=== PATIENT | female | born 1935 | race Caucasian/White ===

== ENCOUNTER 2017-09-23 16:11 | Inpatient (IN) | payer MEDICARE ==
[~2017-09-23] VITALS: Ht 157.5 cm; Wt 59.0 kg
--- NOTE | ~2017-09-23 | DS ---
PATIENT:ISRAEL ARMSTRONG :31 MEDICAL RECORD: [id number] DISCHARGE SUMMARY ADMISSION DATE: 09/23/17 DISCHARGE DATE: 10/08/17 This is a discharge dated 10/08/2017 from inpatient rehabilitation. PRIMARY DIAGNOSIS: Decreased functional ability and ability to provide activities of daily living secondary to CVA. SECONDARY DIAGNOSES: 1. Hyperlipidemia. 2. Hypertension. 3. Coronary artery disease. 4. Diabetes. 5. Arthritis. 6. Mild dementia. HOSPITAL COURSE: Full H&P is located elsewhere on the chart on this 81-year-old female who was admitted to inpatient rehab for physical therapy and occupational therapy to improve gait, transfer skills, bed mobility, and activities of daily living to a modified independent level. She was evaluated by PT and OT and their plans of care were followed. She required group home care for observation and assessment, medication administration. Electrolytes were managed by protocol. Fingerstick blood sugars were monitored throughout her hospital stay with appropriate adjustment in medications as needed. She was cooperative with therapies, progressing towards goals. Case management was involved for discharge planning. She was considered stable for discharge on 10/08/2017. DISCHARGE MEDICATIONS: As per discharge medication reconciliation. DISCHARGE DISPOSITION: The patient is discharged to [facility]. She will continue her current diet and level of activity. She will follow with primary care at the rehab facility and will require a followup with her PCP upon discharge from that facility. She will continue PT and OT. At least 30 minutes was spent in this discharge activity. TRANSINT:[id number] Voice Confirmation ID: [id number] DOCUMENT ID: [id number] Dictated By: ALEC BURNS I have interviewed/examined the above patient and agree with these documented findings. JEOVANNY HERRERA MD at 1757 at 1755 CC: [id number] DICTATION DATE: 11/14/17 1711 JEWELRY CUTTER: 11/15/17 1124 DIS IN 10/08/17 [facility] [address] [place] [address]
--- NOTE | ~2017-09-23 | RHP ---
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 HISTORY OF PRESENT ILLNESS: The patient is an 81-year-old female patient admitted to inpatient rehab from [facility] in [place] with the left middle cerebral artery infarct. She was admitted to hospital on 09/20/2017 secondary to acute change in mental status and recent memory. Following day, she became unresponsive with a sudden drop in her blood sugar and hypotension. She had no verbal response and unequal vessel manager and unequal sluggish pupils. She was given a 500 cc bolus and an amp of D50. She was transferred to the ICU. MRI of the brain showed CVA with occlusion of the middle cerebral artery. She has a history of coronary artery disease, status post coronary artery bypass grafting, cerebrovascular disease with bilateral carotid endarterectomies. She had diabetes, hypertension, and mild dementia. She was living with her daughter. She was independent with ADLs and mobility and her daughter's manage her finances. Currently, she is pleasantly confused, oriented to time. She is min to mod assist for ADLs and mobility. She wants to regain her strength and return back home at her prior level of functioning. COMORBIDITIES: Includes CVA secondary to occlusion of her left middle cerebral artery infarct, acute mental status changes, acute encephalopathy, coronary artery disease status post coronary bypass grafting, accelerated hypertension, diabetes mellitus, hypoglycemia, hypotension, hypercholesterolemia, arthritis, long-term use of insulin, confusion and disorientation at times and mild dementia. PAST MEDICAL HISTORY: Significant for hypertension, diabetes, arthritis, and coronary artery disease. PAST SURGICAL HISTORY: Includes coronary artery bypass grafting and status post bilateral carotid endarterectomy. ALLERGIES: No known drug allergies. CURRENT MEDICATIONS: Include NovoLog 5 units t.i.d. with meals. She is on Monopril 20 mg daily, Aricept 5 mg daily, Plavix 75 mg daily, Levemir 5 mg at bedtime, metoprolol 25 mg b.i.d., atorvastatin 10 mg daily, and polyethylene glycol 17 grams in 8 ounces of water daily. HABITS: No alcohol or tobacco use. FAMILY HISTORY: Noncontributory. SOCIAL HISTORY: The patient hopes to return back home with her daughters and get back to her prior level of function. REVIEW OF SYSTEMS: HISTORY AND PHYSICAL [id number] ISRAEL ARMSTRONG GENERAL: Does complain of weakness. EYES: Denies cold, cough, or congestion. CARDIOVASCULAR: Denies chest pain. PHYSICAL EXAMINATION: VITAL SIGNS: Stable, afebrile. GENERAL: Elderly female. HEENT: Normocephalic and atraumatic. Mucosa moist. NECK: Supple. No lymphadenopathy. LUNGS: Clear at this time. HEART: Regular rate and rhythm. ABDOMEN: Benign. EXTREMITIES: Does have noted unilateral weakness and mild confusion. ASSESSMENT: This is an 81-year-old female patient admitted to rehab with a working diagnosis of cerebrovascular accident. The patient has potential to make improvement. We instituted the following multidisciplinary therapies including to, but limited to physical, occupational, respiratory, speech, nutritional services, prosthetics, and orthotics. Given her complex medical condition and risk for further medical complications, rehabilitation services cannot be provided at a low level of care such as care home facility. PLAN: 1. Admit to [facility] rehab for intensive inpatient therapy to include the following disciplines: A. Physical therapy to improve gait, all transfer skills and bed mobility to a modified independent level. B. Occupational therapy to improve activities of daily living to a modified independent level. C. Case management to assist with discharge planning and placement options. D. Nutrition to assist with nutritional needs. E. Rehabilitation nursing to assist in monitoring of underlying medications and to assist with any type of bowel or bladder management. 2. The patient's current medication and medical care will be continued. 3. The patient will be placed on standard fall precautions. 4. The patient's estimated length of stay is approximately 7-10 days. 5. We will discuss this patient during care team staff meeting this week. TRANSINT:[id number] Voice Confirmation ID: [id number] DOCUMENT ID: [id number] 09/29/2017 Edited for chani PAYNE. KERRY notes whether there has been none or any medical/functional change since admission: - No change since preadmission screen. KERRY attests patient continues to be appropriate for IRF: - Continues to be appropriate. HISTORY AND PHYSICAL [id number] ISRAEL ARMSTRONG SCOTT MD at 2041 CC: [id number] DICTATION DATE: 09/23/172019 SHOT CORE DRILL OPERATOR: 09/23/172112 DIS IN 10/08/17 [facility] [address] [place] [address]
[2017-09-23] MEDS ORDERED: LIPITOR10 MG PO (18:08)
[2017-09-23] MEDS ORDERED: LOPRESSOR25 MG PO (18:09)
[2017-09-23] MEDS ORDERED: LEVEMIR100 U/M1 SC (18:11)
[2017-09-23] MEDS ORDERED: PLAVIX75 MG PO (18:11)
[2017-09-23] MEDS ORDERED: MONOPRIL10 MG PO (18:12)
[2017-09-23] MEDS ORDERED: ARICEPT5 MG PO (18:12)
[2017-09-23] MEDS ORDERED: NOVOLOG100 U/M1 SC (18:15)
[2017-09-23 19:00] VITALS: BP 154/67
[2017-09-23 23:08] VITALS: BP 154/67; BMI 23.8
[2017-09-24 06:33] LABS: BASOPHILS 0.1 % (0-2); EOSINOPHILS 2.8 % (0-7); HEMATOCRIT 42.1 % (36.0-48.0); HEMOGLOBIN 13.2 g/dL (12-16); IMMATURE GRANULOCYTES 0.3 % (0-5); LYMPHOCYTES 18.5 % (15-50); MCH 30.1 pg (26.0-34.0); MCHC 31.4 g/dL (31.0-37.0); MCV 95.9 fL (80.0-100.0); MEAN PLATELET VOLUME 10.7 fL (7.4-10.4); MONOCYTES 10.7 % (2-11); NEUTROPHILS 67.6 % (40-80); PLATELET COUNT 190 10x3/uL (130-400); RBC 4.39 10x6/uL (4.00-5.40); RDW 13.8 % (11.5-14.5); WBC 7.1 10x3/uL (4.8-10.8)
[2017-09-24 06:47] LABS: ANION GAP 12.6 mmol/L (8-16); CARBON DIOXIDE 28.9 mmol/L (21.0-32.0); CREATININE - SERUM 1.2 mg/dL (0.6-1.3); POTASSIUM - SERUM 4.5 mmol/L (3.5-5.1)
[2017-09-24 08:00] VITALS: BP 204/75
[2017-09-24 13:03] VITALS: Ht 157.5 cm; Wt 59.0 kg
[2017-09-24 19:00] VITALS: BP 148/53
[2017-09-25 10:26] VITALS: BP 210/79
[2017-09-25 23:28] VITALS: BP 185/74
[2017-09-26 10:19] VITALS: BP 155/65
[2017-09-26 21:40] VITALS: BP 220/82
[2017-09-27 06:17] LABS: BASOPHILS 0.1 % (0-2); EOSINOPHILS 4.6 % (0-7); HEMATOCRIT 40.8 % (36.0-48.0); IMMATURE GRANULOCYTES 0.1 % (0-5); LYMPHOCYTES 14.4 % (15-50); MCH 30.5 pg (26.0-34.0); MCHC 31.9 g/dL (31.0-37.0); MCV 95.8 fL (80.0-100.0); MONOCYTES 9.4 % (2-11); NEUTROPHILS 71.4 % (40-80); PLATELET COUNT 183 10x3/uL (130-400); RBC 4.26 10x6/uL (4.00-5.40); RDW 13.5 % (11.5-14.5); WBC 8.5 10x3/uL (4.8-10.8)
[2017-09-27 06:43] LABS: ANION GAP 10.1 mmol/L (8-16); CALCIUM 8.9 mg/dL (8.5-10.1); CREATININE - SERUM 1.2 mg/dL (0.6-1.3); POTASSIUM - SERUM 4.1 mmol/L (3.5-5.1)
[2017-09-27 07:57] VITALS: BP 144/62
[2017-09-27 19:00] VITALS: BP 177/60
[2017-09-28 08:00] VITALS: BP 181/58
[2017-09-28 19:00] VITALS: BP 194/81
[2017-09-29 01:30] VITALS: BP 128/78
[2017-09-29 07:14] LABS: BASOPHILS 0.1 % (0-2); EOSINOPHILS 3.2 % (0-7); HEMATOCRIT 43.2 % (36.0-48.0); HEMOGLOBIN 13.8 g/dL (12-16); IMMATURE GRANULOCYTES 0.2 % (0-5); LYMPHOCYTES 12.5 % (15-50); MCH 30.5 pg (26.0-34.0); MCHC 31.9 g/dL (31.0-37.0); MCV 95.4 fL (80.0-100.0); MEAN PLATELET VOLUME 11.2 fL (7.4-10.4); MONOCYTES 9.1 % (2-11); NEUTROPHILS 74.9 % (40-80); PLATELET COUNT 194 10x3/uL (130-400); RBC 4.53 10x6/uL (4.00-5.40); RDW 13.2 % (11.5-14.5)
[2017-09-29 07:40] LABS: ANION GAP 11.7 mmol/L (8-16); CALCIUM 9.5 mg/dL (8.5-10.1); CARBON DIOXIDE 29.6 mmol/L (21.0-32.0); CREATININE - SERUM 1.1 mg/dL (0.6-1.3); POTASSIUM - SERUM 4.3 mmol/L (3.5-5.1)
[2017-09-29 08:00] VITALS: BP 115/61
[2017-09-29 21:27] VITALS: BP 113/62
[2017-09-30 08:00] VITALS: BP 190/67
[2017-09-30 19:00] VITALS: BP 150/49
[2017-10-01 08:03] VITALS: BP 161/66
[2017-10-01 08:06] LABS: ANION GAP 10.6 mmol/L (8-16); CALCIUM 9.2 mg/dL (8.5-10.1); CARBON DIOXIDE 30.9 mmol/L (21.0-32.0); CREATININE - SERUM 1.4 mg/dL (0.6-1.3); POTASSIUM - SERUM 4.5 mmol/L (3.5-5.1)
[2017-10-01 08:08] LABS: BASOPHILS 0.3 % (0-2); EOSINOPHILS 4.9 % (0-7); IMMATURE GRANULOCYTES 0.4 % (0-5); LYMPHOCYTES 17.3 % (15-50); MCH 30.4 pg (26.0-34.0); MCHC 31.7 g/dL (31.0-37.0); MEAN PLATELET VOLUME 10.9 fL (7.4-10.4); MONOCYTES 10.3 % (2-11); NEUTROPHILS 66.8 % (40-80); PLATELET COUNT 180 10x3/uL (130-400); RBC 4.27 10x6/uL (4.00-5.40); RDW 13.3 % (11.5-14.5)
[2017-10-01 19:00] VITALS: BP 168/64
[2017-10-02 07:45] VITALS: BP 139/68
[2017-10-02 20:30] VITALS: BP 170/65
[2017-10-03 09:09] VITALS: BP 137/59
[2017-10-03 19:25] VITALS: BP 169/68
[2017-10-04 06:31] LABS: BASOPHILS 0.3 % (0-2); EOSINOPHILS 3.2 % (0-7); HEMATOCRIT 42.1 % (36.0-48.0); HEMOGLOBIN 13.6 g/dL (12-16); IMMATURE GRANULOCYTES 0.4 % (0-5); LYMPHOCYTES 16.3 % (15-50); MCH 30.8 pg (26.0-34.0); MCHC 32.3 g/dL (31.0-37.0); MCV 95.5 fL (80.0-100.0); MONOCYTES 6.5 % (2-11); NEUTROPHILS 73.3 % (40-80); PLATELET COUNT 195 10x3/uL (130-400); RBC 4.41 10x6/uL (4.00-5.40); RDW 13.2 % (11.5-14.5); WBC 11.1 10x3/uL (4.8-10.8)
[2017-10-04 06:59] LABS: ANION GAP 13.5 mmol/L (8-16); CALCIUM 9.4 mg/dL (8.5-10.1); CARBON DIOXIDE 29.8 mmol/L (21.0-32.0); CREATININE - SERUM 1.3 mg/dL (0.6-1.3); POTASSIUM - SERUM 4.3 mmol/L (3.5-5.1)
[2017-10-04 08:00] VITALS: BP 156/64
[2017-10-04 19:00] VITALS: BP 175/64
[2017-10-05 08:42] VITALS: BP 131/53
[2017-10-05 19:00] VITALS: BP 160/74
[2017-10-06 08:00] VITALS: BP 155/69
[2017-10-06 08:06] LABS: ANION GAP 10.8 mmol/L (8-16); CALCIUM 9.2 mg/dL (8.5-10.1); CARBON DIOXIDE 29.5 mmol/L (21.0-32.0); CREATININE - SERUM 1.3 mg/dL (0.6-1.3); POTASSIUM - SERUM 4.3 mmol/L (3.5-5.1)
[2017-10-06 19:00] VITALS: BP 190/59
[2017-10-07 07:48] LABS: APPEARANCE HAZY (CLEAR); COLOR YELLOW (YELLOW); SPECIFIC GRAVITY 1.005 (1.005-1.020)
[2017-10-07 07:49] LABS: BILIRUBIN NEGATIVE (NEGATIVE); GLUCOSE NEGATIVE (NEGATIVE); KETONE NEGATIVE (NEGATIVE); NITRITE NEGATIVE (NEGATIVE); PROTEIN TRACE mg/dL (NEGATIVE); UROBILINOGEN NORMAL (NORMAL)
[2017-10-07 07:50] LABS: BACTERIA MODERATE /hpf (NONE SEEN)
[2017-10-07 07:51] LABS: RED CELLS - URINE 0-5 /hpf (0-5)
[2017-10-07 07:52] LABS: EPITHELIAL CELLS RARE /hpf (0-5); MUCUS <1+ /lpf (NONE SEEN); TRIPLE PHOSPHATE CRYSTALS 0-5 /hpf (NONE SEEN)
[2017-10-07 08:00] VITALS: BP 177/70
[2017-10-07 19:00] VITALS: BP 178/67
[2017-10-08 08:00] VITALS: BP 190/56
[2017-10-08 08:31] LABS: BASOPHILS 0.5 % (0-2); EOSINOPHILS 3.2 % (0-7); HEMATOCRIT 43.4 % (36.0-48.0); HEMOGLOBIN 13.8 g/dL (12-16); IMMATURE GRANULOCYTES 0.3 % (0-5); LYMPHOCYTES 16.1 % (15-50); MCH 30.5 pg (26.0-34.0); MCHC 31.8 g/dL (31.0-37.0); MEAN PLATELET VOLUME 10.9 fL (7.4-10.4); MONOCYTES 5.3 % (2-11); NEUTROPHILS 74.6 % (40-80); PLATELET COUNT 165 10x3/uL (130-400); RBC 4.52 10x6/uL (4.00-5.40); RDW 13.2 % (11.5-14.5)
[2017-10-08 08:59] LABS: ANION GAP 12.8 mmol/L (8-16); CALCIUM 9.4 mg/dL (8.5-10.1); CREATININE - SERUM 1.2 mg/dL (0.6-1.3); POTASSIUM - SERUM 4.8 mmol/L (3.5-5.1)
== END 2017-10-08 14:32 | DRG 64 ==
LOC: D.REHAB 16:11
PROVIDERS: Emergency Medicine
DX: I63.9 Cerebral infarction, unspecified (principal); G93.40 Encephalopathy, unspecified; R41.82 Altered mental status, unspecified; I25.10 Atherosclerotic heart disease of native coronary artery without angina pectoris; Z95.1 Presence of aortocoronary bypass graft; Z66 Do not resuscitate; I10 Essential (primary) hypertension; E11.9 Type 2 diabetes mellitus without complications; E16.2 Hypoglycemia, unspecified; I95.9 Hypotension, unspecified; E78.00 Pure hypercholesterolemia, unspecified; M19.90 Unspecified osteoarthritis, unspecified site; F03.90 Unspecified dementia, unspecified severity, without behavioral disturbance, psychotic disturbance, mood disturbance, and anxiety; Z79.4 Long term (current) use of insulin